=== PATIENT | male | born 2000 | race Caucasian/White ===

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

== ENCOUNTER 2023-03-23 01:00 | Emergency (ER) | payer BC ==
--- NOTE | 2023-03-23 01:11 | ED ---
General Adult HPI - General Source: patient Mode of arrival: ambulatory Limitations: no limitations <Alcon Gonzalez - Last Filed: 03/23/23 04:15> <Chris Parker - Last Filed: 03/23/23 15:01> - General Chief complaint: ENT Stated complaint: Ringing in Ears Time Seen by Provider: 03/23/23 01:11 - History of Present Illness Initial comments: 23-year-old male presenting with chief complaint of ringing in the ears for 3 months. He admits to some discomfort to bilateral ears. No known injury or trauma. No hearing changes. No discharge or bleeding. He has history of pituitary tumor, he is requesting a head CT. No dizziness, neck pain, chest pain, difficulty breathing, numbness, tingling, weakness. Mother reports that the patient was drinking heavily today, he was using threatening language and being violent and was easily agitated. Mother is concerned about his mental state and would like mental health evaluation. (Alcon Gonzalez) - Related Data Home Medications Medication Instructions Recorded Confirmed Dextroamphetamine/Amphetamine 20 mg PO DAILY 03/23/23 03/23/23 [Adderall Xr 20 mg Capsule] Venlafaxine HCl ER [Effexor Xr] 150 mg PO HS 03/23/23 03/23/23 Allergies Allergy/AdvReac Type Severity Reaction Status Date / Time cephalexin [From Keflex] Allergy "FLU Verified 03/23/23 09:36 SYMPTOMS" Review of Systems ROS Other: All systems not noted in ROS Statement are negative. <Alcon Gonzalez - Last Filed: 03/23/23 04:15> ROS Other: All systems not noted in ROS Statement are negative. <Chris Parker - Last Filed: 03/23/23 15:01> ROS Statement: Those systems with pertinent positive or pertinent negative responses have been documented in the HPI. Past Medical History Past Medical History: Asthma History of Any Multi-Drug Resistant Organisms: None Reported Past Surgical History: Adenoidectomy, Tonsillectomy Past Psychological History: No Psychological Hx Reported Smoking Status: Vaper Past Alcohol Use History: Heavy Past Drug Use History: Marijuana <Alcon Gonzalez - Last Filed: 03/23/23 04:15> General Exam Limitations: no limitations General appearance: alert, in no apparent distress Head exam: Present: atraumatic, normocephalic Eye exam: Present: normal appearance ENT exam: Present: TM's normal bilaterally Neck exam: Present: normal inspection Respiratory exam: Present: normal lung sounds bilaterally. Absent: respiratory distress, wheezes, rales, rhonchi, stridor Cardiovascular Exam: Present: regular rate, normal rhythm, normal heart sounds. Absent: systolic murmur, diastolic murmur, rubs, gallop, clicks Neurological exam: Present: alert, oriented X3 Expanded Focused psych exam: Present: pressured speech, restlessness Skin exam: Present: warm, dry <Alcon Gonzalez - Last Filed: 03/23/23 04:15> - General Exam Comments Initial Comments: Visual Physical Exam Vital signs reviewed General: Well-appearing, nontoxic, no acute distress. Head: Normocephalic, atraumatic Eyes: PERRLA, EOMI ENT: Airway patent Chest: Nonlabored breathing Skin: No visual rash, normal skin tone Neuro: Alert and oriented 3 Musculoskeletal: No gross abnormalities (Alcon Gonzalez) Course Vital Signs 03/23/23 03/23/23 03/23/23 01:04 05:41 09:00 Temperature 97.7 F 97.7 F 98.1 F Pulse Rate 99 107 H 100 Respiratory 18 17 20 Rate Blood Pressure 132/78 149/79 132/61 O2 Sat by Pulse 100 96 98 Oximetry 03/23/23 12:24 Temperature 98.1 F Pulse Rate Respiratory 97 H Rate Blood Pressure 144/68 O2 Sat by Pulse 94 L Oximetry Medical Decision Making <Alcon Gonzalez - Last Filed: 03/23/23 04:15> <Chris Parker - Last Filed: 03/23/23 15:01> - Medical Decision Making Was pt. sent in by a medical professional or institution (, PA, CATALYST OPERATOR CHIEF, urgent care, hospital, or retirement...) When possible be specific @ -No Did you speak to anyone other than the patient for history (EMS, parent, family, police, friend...)? What history was obtained from this source @ -No Did you review nursing and triage notes (agree or disagree)? Why? @ -I reviewed and agree with nursing and triage notes Were old charts reviewed (outside hosp., previous admission, EMS record, old EKG, old radiological studies, urgent care reports/EKG's, retirement records)? Report findings @ -No old charts were reviewed Differential Diagnosis (chest pain, altered mental status, abdominal pain women, abdominal pain men, vaginal bleeding, weakness, fever, dyspnea, syncope, headache, dizziness, GI bleed, back pain, seizure, CVA, palpatations, mental health, musculoskeletal)? @ -Differential includes otitis media, Mnire's disease, idiopathic, intracranial mass, labyrinthitis hypertension, TMJ, acoustic neuroma, medication induced, this is not an all-inclusive list EKG interpreted by me (3pts min.). @ -As above X-rays interpreted by me (1pt min.). @ -None done CT interpreted by me (1pt min.). @ -CT of the brain shows no acute intracranial process U/S interpreted by me (1pt. min.). @ -None done What testing was considered but not performed or refused? (CT, X-rays, U/S, labs)? Why? @ -None What meds were considered but not given or refused? Why? @ -None Did you discuss the management of the patient with other professionals (professionals i.e. , PA, CATALYST OPERATOR CHIEF, lab, RT, psych nurse, social media marketer, compensation vice president, teacher, investigation officer, correctional casework specialist)? Give summary @ -No Was smoking cessation discussed for >3mins.? @ -No Was critical care preformed (if so, how long)? @ -No Were there social determinants of health that impacted care today? How? (Homelessness, low income, unemployed, alcoholism, drug addiction, transportation, low edu. Level, literacy, decrease access to med. care, care home, rehab)? @ -No Was there de-escalation of care discussed even if they declined (Discuss DNR or withdrawal of care, Hospice)? DNR status @ -No What co-morbidities impacted this encounter? (DM, HTN, Smoking, COPD, CAD, Cancer, CVA, ARF, Chemo, Hep., AIDS, mental health diagnosis, sleep apnea, morb id obesity)? @ -None Was patient admitted / discharged? Hospital course, mention meds given and route, prescriptions, significant lab abnormalities, going to OR and other pertinent info. @ -28-year-old male presenting with chief complaint of ringing in the ears. He is requesting a head CT. Head CT is negative. Mother then tells me that she is concerned about the patient's mental state, he was easily agitated and violent earlier and also threatening violence against. She decided to petition the patient. He is awaiting evaluation by EPS. (Alcon Gonzalez) Patient evaluated by EPS after being medically cleared. EPS recommended discharge with outpatient follow-up. Patient clinically stable at this time of discharge. (Chris Parker) - Lab Data Lab Results 03/23/23 Range/Units 02:00 Urine Opiates Screen Not Detected (NotDetected) Ur Oxycodone Screen Not Detected (NotDetected) Urine Methadone Screen Not Detected (NotDetected) Ur Barbiturates Screen Not Detected (NotDetected) U Tricyclic Antidepress Not Detected (NotDetected) Ur Phencyclidine Scrn Not Detected (NotDetected) Ur Amphetamines Screen Not Detected (NotDetected) U Methamphetamines Scrn Not Detected (NotDetected) U Benzodiazepines Scrn Not Detected (NotDetected) Urine Cocaine Screen Not Detected (NotDetected) U Marijuana (THC) Screen Not Detected (NotDetected) Disposition <Alcon Gonzalez - Last Filed: 03/23/23 04:15> Is patient prescribed a controlled substance at d/c from ED?: No Time of Disposition: 15:01 <Chris Parker - Last Filed: 03/23/23 15:01> Clinical Impression: Alcohol abuse Disposition: HOME SELF-CARE Condition: Fair Referrals: Deon Hidalgo DO [Primary Care Provider] - 1-2 days
--- NOTE | 2023-03-23 01:59 | CT ---
EXAM: CT Head Without Intravenous Contrast CLINICAL HISTORY: ITS.REASON CT Reason: tinnitus, MURPHY TECHNIQUE: Axial computed tomography images of the head/brain without intravenous contrast. CTDI is 49.2 mGy and DLP is 1153.4 mGy-cm. This CT exam was performed using one or more of the following dose reduction techniques: automated exposure control, adjustment of the mA and/or kV according to patient size, and/or use of iterative reconstruction technique. COMPARISON: No relevant prior studies available. FINDINGS: Brain: No hemorrhage or mass effect. Ventricles: No hydrocephalus. Bones/joints: Unremarkable. Soft tissues: Unremarkable. Sinuses: No air fluid level. Mastoid air cells: Clear. IMPRESSION: No acute hemorrhage, hydrocephalus, or mass effect.
[2023-03-23] MEDS ORDERED: LORazepam 2 MG/ML INJ IM STA (03:04)
[2023-03-23] MEDS ORDERED: HALOPERIDOL LACTATE 5 MG/ML 1 ML VIAL IM STA (03:04)
[2023-03-23] MEDS ORDERED: diphenhydrAMINE 50 MG/ML 1 ML VIAL IM STA (03:04)
[2023-03-23 06:18] LABS: Amphetamine Screen,Urine Not Detected (NotDetected); Barbiturate Screen,Urine Not Detected (NotDetected); Benzodiazepines Screen,Urine Not Detected (NotDetected); Cocaine Screen,Urine Not Detected (NotDetected); Methadone Screen, Urine Not Detected (NotDetected); Opiate Screen,Urine Not Detected (NotDetected); Oxycodone Screen, Urine Not Detected (NotDetected); Phencyclidine Screen,Urine Not Detected (NotDetected); Tricyclic Antidepressant,Urine Not Detected (NotDetected); Urn Cannabinoid Scrn Not Detected (NotDetected)
[2023-03-23 09:30] VITALS: TEMP 98.1
[2023-03-23 15:12] VITALS: BP 140/60; PULSE 68; RESP 20
== END 2023-03-23 15:10 | disposition home or self-care (01) ==
LOC: EC 01:00
DX: F10.10 Alcohol abuse, uncomplicated (principal); J45.909 Unspecified asthma, uncomplicated; F17.290 Nicotine dependence, other tobacco product, uncomplicated; F12.90 Cannabis use, unspecified, uncomplicated; Z88.1 Allergy status to other antibiotic agents
CPT/HCPCS: 70450; 80306; 99284